=== PATIENT | male | born 1995 | race Caucasian/White ===

== ENCOUNTER 2017-03-08 18:28 | Emergency (ER) | payer SELFPAY ==
[2017-03-08 18:43] VITALS: BP 138/81
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
== END 2017-03-08 18:46 | disposition home or self-care (01) ==
LOC: ED 18:28
DX: S40.812A Abrasion of left upper arm, initial encounter (principal); X58.XXXA Exposure to other specified factors, initial encounter; Y93.9 Activity, unspecified; Y99.9 Unspecified external cause status
CPT/HCPCS: 99283